=== PATIENT | female | born 1965 | race Caucasian/White ===

== ENCOUNTER 2024-09-15 10:50 | Emergency (ER) | payer SELFPAY ==
[~2024-09-15] VITALS: Ht 172.7 cm; Wt 45.6 kg
[2024-09-15] MEDS: acetaminophen 325mg tablet PO STA (13:10)
[2024-09-15] MEDS: amox tr/potassium clavulanate 875/125mg TAB PO STA (13:10)
[2024-09-15] MEDS: LIDOcaine 1% W/epiNEPHrine 1:100,000 20ml vial SQ STA (13:11)
[2024-09-15] MEDS ORDERED: AMOX-117 PO (14:26)
[2024-09-15 14:39] VITALS: BP 162/90; PULSE 97; RESP 17; TEMP 98; O2SAT 99
== END 2024-09-15 14:40 | disposition home or self-care (01) ==
LOC: ER 10:51
DX: S51.812A Laceration without foreign body of left forearm, initial encounter (principal); Z88.0 Allergy status to penicillin; Z88.1 Allergy status to other antibiotic agents; W54.0XXA Bitten by dog, initial encounter; Y93.89 Activity, other specified; Y92.89 Other specified places as the place of occurrence of the external cause; Y99.8 Other external cause status
CPT/HCPCS: 12002; 73090; 73140; 99284; A6258; A6449

== ENCOUNTER 2024-10-02 13:08 | Emergency (ER) | payer SELFPAY ==
[~2024-10-02] VITALS: Ht 172.7 cm; Wt 57.8 kg
[2024-10-02 13:20] VITALS: BP 162/93; PULSE 92; TEMP 98.8; O2SAT 96
[2024-10-02 15:13] VITALS: RESP 18
== END 2024-10-02 15:14 | disposition home or self-care (01) ==
LOC: ER 13:09
DX: S51.812D Laceration without foreign body of left forearm, subsequent encounter (principal); X58.XXXD Exposure to other specified factors, subsequent encounter; Z48.02 Encounter for removal of sutures
CPT/HCPCS: 99281; A6449